=== PATIENT | male | born 1990 | race Caucasian/White ===

== ENCOUNTER 2023-12-17 08:14 | Emergency (ER) | payer OTHER ==
[~2023-12-17] VITALS: Ht 177.8 cm; Wt 79.4 kg
[~2023-12-17 08:14] MED LIST: Bactrim Ds Tab1 EACH PO; CEPH500 PO; Mupirocin22 GM TOP
[2023-12-17 08:55] VITALS: BP 148/103
[2023-12-17] MEDS ORDERED: Cleocin HCl150 MG PO (08:57)
== END 2023-12-17 08:57 | disposition home or self-care (01) ==
LOC: ER 08:14
DX: K04.7 Periapical abscess without sinus (principal); Z88.0 Allergy status to penicillin; F17.200 Nicotine dependence, unspecified, uncomplicated
CPT/HCPCS: 99282

== ENCOUNTER 2025-05-07 17:41 | Emergency (ER) | payer OTHER ==
[~2025-05-07] VITALS: Ht 172.7 cm; Wt 72.6 kg
[~2025-05-07 17:41] MED LIST changes: +Cleocin HCl150 MG PO
[2025-05-07] MEDS ORDERED: DiphenhydrAMINE HCl 50 MG/ML 1ML Vial IV ONE (18:20)
[2025-05-07] MEDS ORDERED: PRED20 PO (19:34)
[2025-05-07 19:44] VITALS: BP 145/93
== END 2025-05-07 19:46 | disposition home or self-care (01) ==
LOC: ER 17:41
DX: T63.441A Toxic effect of venom of bees, accidental (unintentional), initial encounter (principal); T78.2XXA Anaphylactic shock, unspecified, initial encounter; F17.200 Nicotine dependence, unspecified, uncomplicated; Z88.0 Allergy status to penicillin
CPT/HCPCS: 96374; 96375; 99282-25; J1200; J2919